=== PATIENT | male | born 1965 | race Caucasian/White ===

== ENCOUNTER 2016-06-23 16:34 | Emergency (ER) | payer BC ==
[2016-06-23 16:57] VITALS: BP 156/86
[2016-06-23] MEDS ORDERED: NS 0.9% 1000 ML* 1,000 ML IV ONE (18:07)
--- NOTE | 2016-06-23 18:58 | RAD ---
Indication: Abdominal pain since yesterday. History of C. Difficile colitis. Comparison: September 29, 2015 CT. Technique: Supine and upright views of the abdomen. Report: Negative for free air beneath the LEFT hemidiaphragm or partially visualized RIGHT hemidiaphragm. Moderately large volume of stool present throughout the colon. No dilated bowel loops to indicate bowel obstruction. No suspicious calcifications or mass effect. Thoracic lumbar spinal fixation rods noted. Fracture at the caudal margin of the RIGHT spinal fixation rodrigue is chronic. Unremarkable soft tissue contours. IMPRESSION: Large volume of stool present throughout the colon. No evidence for bowel obstruction.
--- NOTE | 2016-06-23 19:45 | ED ---
Gertrudis John Rebecca, scribed for Nima Cook MD on 06/23/16 at 1815 . Abdominal Pain/Male - HPI Summary HPI Summary: Pt is a 51 y/o M who presents to ED c/o abd pain. Pain is acut deon chronic, present for multiple months, worsening 2 days ago and has been constant since onset. Pain is in the RLQ without radiation and is characterized as pulling/ tearing and currently ranked 5/10. Pt states that it feels as though "there's a bungee cord in there". Sx aggravated by standing, alleviated by nothing. Additionally c/o constipation. Denies changes in appetite. Dx of inguinal hernia in January. Has not seen a surgeon concerning hernia. Referred from PCP where they attempted to reduce it to r/o incarceration of hernia. - History of Current Complaint Chief Complaint: EDAbdPain Stated Complaint: LOWER ABD PAIN Time Seen by Provider: 06/23/16 18:02 Hx Obtained From: Patient Onset/Duration: Gradual Onset, Lasting Weeks - Multiple months, Still Present, Worse Since - 2 days ago Timing: Constant Severity Initially: Mild Severity Currently: Moderate Pain Intensity: 5 Pain Scale Used: 0-10 Numeric Location: Discrete At: RLQ Radiates: No Character: Tearing Aggravating Factor(s): Other: - Standing Alleviating Factor(s): Nothing Associated Signs And Symptoms: Positive: Constipation. Negative: Decreased Appetite - Allergies/Home Medications Allergies/Adverse Reactions: Allergies Allergy/AdvReac Type Severity Reaction Status Date / Time No Known Allergies Allergy Verified 09/29/15 17:37 PMH/Surg Hx/FS Hx/Imm Hx Endocrine/Hematology History: Denies: Hx Diabetes Cardiovascular History: Denies: Hx Congestive Heart Failure, Hx Hypertension GI History: Reports: Other GI Disorders - cdiff History: Denies: Hx Dialysis, Hx Renal Disease Musculoskeletal History: Reports: Other Musculoskeletal History - BACK SURGERY FOR KYPHOSIS- STATES HAS 2 METAL RODS IN BACK Sensory History: Reports: Hx Contacts or Glasses Denies: Hx Hearing Aid Opthamlomology History: Reports: Hx Contacts or Glasses - Surgical History Surgery Procedure, Year, and Place: Back surgery for kyphosis 1982. Nasal surgery Hx Anesthesia Reactions: No - Immunization History Date of Tetanus Vaccine: pt states unsure Date of Influenza Vaccine: none Infectious Disease History: Yes Infectious Disease History: Reports: Hx Clostridium Difficile - +, Hx Shingles Denies: Traveled Outside the [place] in Last 30 Days - Family History Known Family History: Positive: Cardiac Disease - Social History Alcohol Use: Occasionally Alcohol Amount: 12 PACK PER WEEK Hx Substance Use: No Substance Use Type: Reports: None Hx Tobacco Use: Yes Smoking Status (MU): Former Smoker Amount Used/How Often: 1 1/2-2 PPD X 28 YEARS Have You Smoked in the Last Year: No Review of Systems Positive: Abdominal Pain - RLQ, Other - Denies changes in appetite Positive: other - Constipation All Other Systems Reviewed And Are Negative: Yes Physical Exam - Summary Physical Exam Summary: VITAL SIGNS: Reviewed. GENERAL: Patient is a well developed and nourished male who is lying comfortable in the stretcher. Patient is not in any acute respiratory distress. HEAD AND FACE: Normocephalic and atraumatic. EYES: PERRLA, EOMI x 2, No injected conjunctiva. EARS: Hearing grossly intact. Ear canals and tympanic membranes are WNL. MOUTH: Oropharynx within normal limits. NECK: Supple, trachea is midline, no adenopathy, no JVD. CHEST: Symmetric, no tenderness at palpation LUNGS: Clear to auscultation bilaterally. No wheezing or crackles. CVS: RRR,, S1 and S2 present, no murmurs or gallops appreciated. ABDOMEN: Soft, non-tender. No signs of distention. Positive bowel sounds. No rebound no guarding, and no masses palpated. No abdominal bruit or pulsations. Positive right inguinal hernia which was reducible. : Circuited penis with both testicles dended and no masses or tenderness found. Normal cremasteric reflex. EXTREMITIES: FROM in all major joints, no edema, no cyanosis or clubbing. NEURO: Alert and oriented x 3. No acute neurological deficits. Speech is normal. SKIN: Dry and warm Vital Signs On Initial Exam: Initial Vitals Temp Pulse Resp BP Pulse Ox 98.5 F 71 16 156/86 100 06/23/16 16:50 06/23/16 16:50 06/23/16 16:50 06/23/16 16:50 06/23/16 16:50 Diagnostics - Vital Signs Vital Signs Temp Pulse Resp BP Pulse Ox 06/23/16 16:50 98.5 F 71 16 156/86 100 - Laboratory Lab Statement: Any lab studies that have been ordered have been reviewed, and results considered in the medical decision making process. - Radiology Abd XR Radiology Interpretation Completed By: Radiologist - Large volume of stool present throughout the colon. No evidence for bowel obstruction. Abdominal Pain Fem Course/Dx - Course Assessment/Plan: Pt is a 51 y/o M who presents to ED as a transfer from PCP with a CC of having an incarcerated R inguinal hernia. Pt reports that he has been dealing with sx for the last couple months, however in the last couple days , that he returned to work, he has been having an increase in pain and protrusion of hernia. In the ED course, during the physical exam, pt was able to reduce the hernia himself. I re-examined pt multiple times and hernia did not protrude. The pt is asymptomatic and has no pain. XR of the abdomen shows large amount of stool present throughout the colon w/o evidence of obstruction. The pt is also passing gas. At this time I discussed my PE and findings with Dr. Dooley from surgery and he recommends that pt be d/c and followup tomorrow morning at his office. The pt and his are agreeable with plan therefore he will be d/c to home with followup with PCP and Dr. Dooley. Patient was also given a prescription for Miralax for his constipation. Patient still passing gas in the ED. I discussed all the findings and test results with the patient and patient. Patient was instructed to return to the emergency room immediately if any of the symptoms return or worsens. They understand and agree. They were explained the possibility of an early abdominal pathology which was not detected at this time despite the physical exam and testing. They understand and agree. Abdominal exam before discharge: Soft,NT. No signs of distention. BS present. No rebound no guarding, and no masses palpated. Patient is alert and oriented. Patient is hemodynamically stable. Patient is to follow up with primary care physician in the next 24 hours. Patient and patients parents agree and understands. - Diagnoses Provider Diagnoses: Reducible right inguinal hernia - Provider Notifications Discussed Care Of Patient With: Dr. Dooley, surgeon, who recommends that pt be d/ c to home and followup with him tomorrow morning. Time Discussed With Above Provider: 19:24 Discharge - Discharge Plan Condition: Stable Disposition: HOME Prescriptions: Polyethylene Glycol 3350* [Miralax*] 17 gm PO DAILY #12 packet Patient Education Materials: Inguinal Hernia (ED) Referrals: Kurt Scott MD [Primary Care Provider] - 3 Days Jaspreet Dooley MD [Medical Doctor] - 06/24/16 Additional Instructions: Follow up with Dr. Dooley, surgeon, at his office tomorrow morning. Follow up with your primary care physician within the next 3 days. Return to ED for any returning or worsening of symptoms. The documentation as recorded by the Gertrudis barrientos Rebecca accurately reflects the service I personally performed and the decisions made by , Nima Cook MD.
== END 2016-06-23 20:01 | disposition home or self-care (01) ==
LOC: ED 16:34
DX: K40.90 Unilateral inguinal hernia, without obstruction or gangrene, not specified as recurrent (principal); Z87.891 Personal history of nicotine dependence
CPT/HCPCS: 74020; 99282

== ENCOUNTER → 2016-06-30 | Day surgery (SDC) | payer BC ==
[~2016-06-30] MED LIST: Atracurium* 10 MG/ML 10 ML VIAL ONE; Buffered Lidocaine 1% SYR 3ML* 3 ML/SYR SYRINGE INTRADERM ONE; Buffered Lidocaine 1% SYR 3ML* 3 ML/SYR SYRINGE ONE; Bupivacaine 0.25% EPI 200,000* 30 ML SDV ONE; DiMENhydriNATE IV* 50 MG/ML VIAL IV PUSH PRN; Lidocaine 2% MPF* 2 ML VIAL ONE; Phenylephrine IV* 40 MCG/ML 10 ML SYRINGE ONE; Propofol* 10 MG/ML 20 ML BTL IV PUSH ONE; Sodium Citrate/Citric Acid* 15 ML UDC ONE; Sodium Citrate/Citric Acid* 15 ML UDC PO ONE; ceFAZolin 2 GM PREMIX (*) 2 GM/50 ML BAG IVPB ONE; celeCOXIB CAP* 100 MG ONE; celeCOXIB CAP* 200 MG PO ONE; fentaNYL* 50 MCG/ML 2 ML VIAL (100 MCG VIAL) ONE; oxyCODONE/Acetamin 5/325 MG* TAB ONE; oxyCODONE/Acetamin 5/325 MG* TAB PO PRN
--- NOTE | 2016-06-30 11:15 | SURGPN ---
Brief Operative Note - Surgery Procedures: Procedures Pre-OP Diagnoses: Right inguinal hernia Post-op Diagnosis: same Procedure: Laparoscopic right inguinal hernia repair with mesh Surgeon: Soumya Asst: Yunior Terrellthearnel: PHYLICIA Burch EBL: minimal IVF: minimal Specimen: none Drains: none
[2016-06-30] MEDS: fentaNYL* 50 MCG/ML 2 ML VIAL (100 MCG VIAL) IV PRN ×2 (11:39→11:58)
[2016-06-30 12:15] VITALS: BP 135/78
--- NOTE | 2016-06-30 22:40 | OP ---
DATE OF OPERATION: 06/30/16 - [facility] DATE OF : 61 SURGEON: Jaspreet Dooley MD FISH CUTTER: Massiel Mojica NP ANESTHESIOLOGIST: Dr. Burch ANESTHESIA: General. PRE-OP DIAGNOSIS: Right inguinal hernia. POST-OP DIAGNOSIS: Right inguinal hernia. OPERATIVE PROCEDURE: Laparoscopic right inguinal hernia repair with mesh. ESTIMATED BLOOD LOSS: Minimal. FLUID: Crystalloids. SPECIMEN: None. COUNTS: Lap pad count, instrument count correct at the end of the procedure. DISPOSITION: The patient extubated and transferred to the PACU in a stable condition. DESCRIPTION OF PROCEDURE: The patient was identified in the preoperative area, marked, consent signed and taken back to the operating room, placed on the operating table in supine position. Preoperative antibiotics were given. Sequential devices were placed on bilateral lower extremities. General anesthesia was induced. The patient's abdomen was clipped of hair and then prepped and draped in a standard surgical fashion. Time-out was performed. An infraumbilical incision was made. This was deepened down to the anterior fascia on the right, which was incised and the rectus pillar retracted laterally and entry into the preperitoneal plane was made. Finger dissection was then used to break up any attachments to make this a bigger space and then a 12-mm trocar was inserted. This preperitoneal plane was allowed to insufflate to a pressure of 12 mmHg, and the patient tolerated the insufflation well. Blunt dissection was then carried out with the camera. We appreciated that we were in the appropriate plane and then two 5 mm trocars were placed in the lower midline. We exposed Papo's ligament on both left and right. There was no direct hernia. The epigastric vessels were identified and maintained anteriorly. We opened up into Bogros' space, fraying up this area, and the hernia sac was then clearly identified. This was gently dissected bluntly from the spermatic structures structures until it was completely reduced. Hemostasis was excellent. Next, a large Bard 3D mesh for the right side was opened up. This was placed into the abdomen and was tacked over Appo's ligament and also laterally. We also took a portion of the sac and loosely tacked it to the mesh itself. It covered the full myopectineal orifice. The preperitoneal plane was then allowed to collapse. Trocars removed under direct vision and the umbilical incision site was reapproximated to the fascial layer with an 0 Polysorb suture in a [id number] fashion and then all 3 skin incision were reapproximated with 4-0 Monocryl subcuticular sutures. Steri- Strips and sterile dressing were applied. The patient tolerated the procedure well and was transferred to the PACU in a stable condition. CC: Kurt Scott MD* [id number]/[facility] #: [id number] GUALBERTO
== END | disposition home or self-care (01) ==
LOC: OR 07:58
PROVIDERS: ATTEND Surgery
DX: K40.90 Unilateral inguinal hernia, without obstruction or gangrene, not specified as recurrent (principal); Z87.891 Personal history of nicotine dependence; I10 Essential (primary) hypertension
CPT/HCPCS: A9270-GY; J0690; J2704; J3010

== ENCOUNTER → 2017-02-21 10:49 | Emergency (ER) | payer BC ==
[~2017-02-21 10:49] MED LIST changes: +Aspirin Low Dose CHEW TAB* 81 MG ONE; +Aspirin Low Dose CHEW TAB* 81 MG PO ONE; -Atracurium* 10 MG/ML 10 ML VIAL ONE; -Buffered Lidocaine 1% SYR 3ML* 3 ML/SYR SYRINGE INTRADERM ONE; -Buffered Lidocaine 1% SYR 3ML* 3 ML/SYR SYRINGE ONE; -Bupivacaine 0.25% EPI 200,000* 30 ML SDV ONE; -DiMENhydriNATE IV* 50 MG/ML VIAL IV PUSH PRN; +Iohexol 350* (CONTRAST) 500 ML MDV IV ONE; -Lidocaine 2% MPF* 2 ML VIAL ONE; -Phenylephrine IV* 40 MCG/ML 10 ML SYRINGE ONE; -Propofol* 10 MG/ML 20 ML BTL IV PUSH ONE; -Sodium Citrate/Citric Acid* 15 ML UDC ONE; -Sodium Citrate/Citric Acid* 15 ML UDC PO ONE; -ceFAZolin 2 GM PREMIX (*) 2 GM/50 ML BAG IVPB ONE; -celeCOXIB CAP* 100 MG ONE; -celeCOXIB CAP* 200 MG PO ONE; -fentaNYL* 50 MCG/ML 2 ML VIAL (100 MCG VIAL) ONE; -oxyCODONE/Acetamin 5/325 MG* TAB ONE; -oxyCODONE/Acetamin 5/325 MG* TAB PO PRN
[2017-02-21 12:03] LABS: Hematocrit 45 % (42-52); Hemoglobin 15.2 g/dl (14.0-18.0); Mean Corpuscular HGB Conc 34 g/dl (31-36); Mean Corpuscular Hemoglobin 30 pg (27-31); Mean Corpuscular Volume 90 fL (80-94); Mean Platelet Volume 8 um3 (7.4-10.4); Red Blood Count 5.04 10^6/ul (4.0-5.4); Red Cell Distribution Width 14 % (10.5-15); White Blood Count 5.7 10^3/ul (3.5-10.8)
--- NOTE | 2017-02-21 12:08 | RAD ---
INDICATION: Chest pain, back pain, RIGHT arm pain. History of hypertension and tobacco use. COMPARISON: No relevant prior exams available on the [facility] PACS for comparison. TECHNIQUE: Dual energy PA and routine lateral views of the chest were obtained. REPORT: Minimal prominence of the lower lung zone interstitial markings. No consolidation concerning for pneumonia, focal pulmonary lesion, pleural effusion, pneumothorax. The heart, pulmonary vasculature, and mediastinal contours are unremarkable. 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 Bilateral posterior element spinal fixation rods. IMPRESSION: Minimal bilateral lower lung zone subsegmental atelectasis.
[2017-02-21 12:18] LABS: Albumin 3.9 g/dL (3.2-5.2); Calcium 9.3 mg/dL (8.6-10.3); EGFR African American 140.1 (>60); EGFR Non-African American 108.9 (>60); Globulin 3.2 g/dL (2-4); Potassium 4.1 mmol/L (3.5-5.0); Total Bilirubin 0.5 mg/dL (0.2-1.0); Total Protein 7.1 g/dL (6.4-8.9)
[2017-02-21 12:57] VITALS: BP 140/82
--- NOTE | 2017-02-21 13:29 | RAD ---
INDICATION: Back pain. Assess for aortic dissection. COMPARISON: September 29, [address] and February 21, 2017 chest radiograph. TECHNIQUE: Multidetector CT images were obtained from the lung apices to the ischial tuberosities with 100 mL Omnipaque 350 IV contrast. No oral contrast administered limiting assessment of the alimentary tract. Multiplanar reformation including maximum intensity projection and 3-D arterial volume rendering of the aorta. CHEST REPORT: Mild LEFT basilar subsegmental atelectasis or pleural-parenchymal scarring. Negative for pleural effusion or pneumothorax. 0.7 cm short axis normal size limits RIGHT paratracheal lymph node. Similar normal size subcarinal and hilar lymph nodes. Negative for lymphadenopathy. Negative for cardiomegaly or pericardial effusion. Coronary artery calcifications. Well opacified aorta is normal in diameter and remarkable for only mild atherosclerotic plaque. Negative for dissection of the thoracic aorta. The pulmonary arteries are well-opacified without filling defects to suggest pulmonary embolism. Bilateral thoracic spine fixation rods with resulting artifact. 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 No suspicious focal osseous lesions. CHEST IMPRESSION: 1. No evidence for aneurysm or dissection of the thoracic aorta. 2. Coronary artery calcifications. 3.Bilateral thoracic spine fixation rods with resulting artifact. 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 No fracture or suspicious focal osseous lesions. ABDOMEN PELVIS REPORT: Arterial phase only series limits assessment of the abdominal viscera. No suspicious finding of the liver, gallbladder, pancreas, spleen. Negative for CT abnormality of the upper GI, small bowel, or retrocecal appendix. Severe colonic diverticulosis most marked at the sigmoid colon without findings of acute diverticulitis. Negative for ascites or free air. Small fat-containing indirect RIGHT inguinal hernia without inflammatory change. 1.8 cm diameter RIGHT adrenal nodule is unchanged compared with the September 29, 2015 exam favoring benign etiology although the nodule is nonspecific based on density measurement with presence of IV contrast limiting characterization. Unremarkable LEFT adrenal gland. Symmetric cortical enhancement of the kidneys. No focal renal lesions or hydronephrosis. Unremarkable ureters and partially distended urinary bladder. Symmetric seminal vesicles. Negative for lymphadenopathy. Atherosclerotic plaque of the abdominal aorta and iliac arteries without aneurysm, dissection, or hemodynamic significant stenosis. No evidence for hemodynamic significant renal artery, celiac axis, or superior mesenteric artery stenosis. Normal opacification of the inferior mesenteric artery. Normal variant LEFT side inferior vena cava demonstrates normal physiologic distention. RIGHT iliac bone bone harvest defect noted. No suspicious focal osseous lesions evident. Negative for fracture. Mild multilevel lumbar sacral spine degenerative spondylosis and facet joint osteoarthritis. ABDOMEN PELVIS IMPRESSION: 1. Peripheral vascular disease without aneurysm or dissection of the abdominal aorta or iliac arteries. 2. 1.8 cm diameter RIGHT adrenal nodule is unchanged compared with the September 29, 2015 exam favoring benign etiology although the nodule is nonspecific based on density measurement with presence of IV contrast limiting characterization. Consider nonemergent outpatient follow-up noncontrast CT of the abdomen to further characterize the RIGHT adrenal lesion. 3. Severe colonic diverticulosis without findings of diverticulitis. 4. Negative for obstructive uropathy.
--- NOTE | 2017-02-21 20:17 | ED ---
Carly John Emily, scribed for Jeronimo Ferguson MD on 02/21/17 at 1132 . Complex/Multi-Sys Presentation - HPI Summary HPI Summary: This patient is a 51 year old M BIBA to [facility] accompanied by children with a chief complaint of back pain since 0400 yesterday. The back pain began in the upper back and radiated to shoulders (mostly right), low back, and right arm ( pain and pressure). The pain is intermittent and worsening today at 0930. Symptoms aggravated by nothing. Symptoms alleviated by Ibuprofen. Patient reports heartburn, palpitations, near syncope, and headache (pressured). Patient denies CP. - History Of Current Complaint Time Seen by Provider: 02/21/17 11:15 Hx Obtained From: Patient, Family/Toll Operator Onset/Duration: Sudden Onset, Lasting Days, Still Present Timing: Intermittent, Lasting: - Days. Severity Currently: Moderate Severity Initially: Moderate Aggravating Factor(s): nothing Alleviating Factor(s): nothing Associated Signs And Symptoms: Positive: Headache, Palpitations, Other - Near syncope. Heartburn. - Allergies/Home Medications Allergies/Adverse Reactions: Allergies Allergy/AdvReac Type Severity Reaction Status Date / Time No Known Allergies Allergy Verified 06/30/16 08:12 PMH/Surg Hx/FS Hx/Imm Hx Endocrine/Hematology History: Denies: Hx Diabetes Cardiovascular History: Reports: Hx Hypertension - ON Rx, DOESN'T REMEMBER NAME Denies: Hx Congestive Heart Failure GI History: Reports: Other GI Disorders - cdiff History: Denies: Hx Dialysis, Hx Renal Disease Musculoskeletal History: Reports: Other Musculoskeletal History - BACK SURGERY FOR KYPHOSIS- STATES HAS 2 METAL RODS IN BACK Sensory History: Reports: Hx Contacts or Glasses - GLASSES Denies: Hx Hearing Aid Opthamlomology History: Reports: Hx Contacts or Glasses - GLASSES - Surgical History Surgery Procedure, Year, and Place: 1981 Back surgery for kyphosis [facility]. 05/2015 Nasal surgery [facility] [place] Hx Anesthesia Reactions: No - Immunization History Date of Tetanus Vaccine: pt states unsure Date of Influenza Vaccine: none Infectious Disease History: Reports: Hx Clostridium Difficile - +, Hx Shingles Denies: Traveled Outside the [place] in Last 30 Days - Family History Known Family History: Positive: Cardiac Disease - Social History Alcohol Use: Occasionally Alcohol Amount: 12 PACK PER WEEK Hx Substance Use: No Substance Use Type: Reports: None Hx Tobacco Use: Yes Smoking Status (MU): Former Smoker Type: Cigarettes Amount Used/How Often: 1 1/2--2 PPD X Length of Time of Smoking/Using Tobacco: 23YRS Have You Smoked in the Last Year: No Review of Systems Positive: Palpitations. Negative: Chest Pain Positive: Other - Heartburn. Positive: Other - Back pain Positive: Headache, Syncope - Near. All Other Systems Reviewed And Are Negative: Yes Physical Exam Triage Information Reviewed: Yes Vital Signs On Initial Exam: Initial Vitals Pulse Ox 96 02/21/17 11:38 Vital Signs Reviewed: Yes Appearance: Positive: Well-Appearing, No Pain Distress Skin: Positive: Warm, Skin Color Reflects Adequate Perfusion, Dry Head/Face: Positive: Normal Head/Face Inspection Eyes: Positive: Normal ENT: Positive: Normal ENT inspection Neck: Positive: Supple, Nontender Respiratory/Lung Sounds: Positive: Clear to Auscultation, Breath Sounds Present Cardiovascular: Positive: RRR Abdomen Description: Positive: Nontender, Soft Bowel Sounds: Positive: Present Musculoskeletal: Positive: Normal Neurological: Positive: Normal, Sensory/Motor Intact, Alert, Oriented to Person Place, Time, CN Intact II-III Psychiatric: Positive: Affect/Mood Appropriate Diagnostics - Vital Signs Vital Signs Temp Pulse Resp BP Pulse Ox 02/21/17 15:00 79 20 95 02/21/17 14:00 74 20 96 02/21/17 13:00 83 20 95 02/21/17 12:58 77 17 97 02/21/17 12:30 140/82 02/21/17 12:00 144/84 02/21/17 11:55 142/81 02/21/17 11:44 97.8 F 90 18 143/90 02/21/17 11:38 96 02/21/17 11:36 92 15 97 02/21/17 11:30 93 19 160/103 02/21/17 11:00 91 18 143/90 02/21/17 10:58 10 02/21/17 10:57 128/86 - Laboratory Lab Results: Lab Results 02/21/17 02/21/17 02/21/17 Range/Units 11:50 11:50 11:50 WBC 5.7 (3.5-10.8) 10^3/ul RBC 5.04 (4.0-5.4) 10^6/ul Hgb 15.2 (14.0-18.0) g/dl Hct 45 (42-52) % MCV 90 (80-94) fL MCH 30 (27-31) pg MCHC 34 (31-36) g/dl RDW 14 (10.5-15) % Plt Count 210 (150-450) 10^3/ul MPV 8 (7.4-10.4) um3 Neut % (Auto) 49.0 (38-83) % Lymph % (Auto) 39.8 (25-47) % [place] % (Auto) 8.3 (1-9) % Eos % (Auto) 2.2 (0-6) % Baso % (Auto) 0.7 (0-2) % Absolute Neuts (auto) 2.8 (1.5-7.7) 10^3/ul Absolute Lymphs (auto) 2.3 (1.0-4.8) 10^3/ul Absolute Monos (auto) 0.5 (0-0.8) 10^3/ul Absolute Eos (auto) 0.1 (0-0.6) 10^3/ul Absolute Basos (auto) 0 (0-0.2) 10^3/ul Absolute Nucleated RBC 0.01 10^3/ul Nucleated RBC % 0.1 D-Dimer, Quantitative < 200 (Less Than 230) ng/mL Sodium 132 L (133-145) mmol/L Potassium 4.1 (3.5-5.0) mmol/L Chloride 104 (101-111) mmol/L Carbon Dioxide 23 (22-32) mmol/L Anion Gap 5 (2-11) mmol/L BUN 15 (6-24) mg/dL Creatinine 0.75 (0.67-1.17) mg/dL Est GFR ( Amer) 140.1 (>60) Est GFR (Non-Af Amer) 108.9 (>60) BUN/Creatinine Ratio 20.0 (8-20) Glucose 91 (70-100) mg/dL Lactic Acid (0.5-2.0) mmol/L Calcium 9.3 (8.6-10.3) mg/dL Total Bilirubin 0.50 (0.2-1.0) mg/dL AST 23 (13-39) U/L ALT 24 (7-52) U/L Alkaline Phosphatase 55 (34-104) U/L Troponin I 0.00 (<0.04) ng/mL Total Protein 7.1 (6.4-8.9) g/dL Albumin 3.9 (3.2-5.2) g/dL Globulin 3.2 (2-4) g/dL Albumin/Globulin Ratio 1.2 (1-3) 02/21/17 02/21/17 Range/Units 11:50 14:21 WBC (3.5-10.8) 10^3/ul RBC (4.0-5.4) 10^6/ul Hgb (14.0-18.0) g/dl Hct (42-52) % MCV (80-94) fL MCH (27-31) pg MCHC (31-36) g/dl RDW (10.5-15) % Plt Count (150-450) 10^3/ul MPV (7.4-10.4) um3 Neut % (Auto) (38-83) % Lymph % (Auto) (25-47) % [place] % (Auto) (1-9) % Eos % (Auto) (0-6) % Baso % (Auto) (0-2) % Absolute Neuts (auto) (1.5-7.7) 10^3/ul Absolute Lymphs (auto) (1.0-4.8) 10^3/ul Absolute Monos (auto) (0-0.8) 10^3/ul Absolute Eos (auto) (0-0.6) 10^3/ul Absolute Basos (auto) (0-0.2) 10^3/ul Absolute Nucleated RBC 10^3/ul Nucleated RBC % D-Dimer, Quantitative (Less Than 230) ng/mL Sodium (133-145) mmol/L Potassium (3.5-5.0) mmol/L Chloride (101-111) mmol/L Carbon Dioxide (22-32) mmol/L Anion Gap (2-11) mmol/L BUN (6-24) mg/dL Creatinine (0.67-1.17) mg/dL Est GFR ( Amer) (>60) Est GFR (Non-Af Amer) (>60) BUN/Creatinine Ratio (8-20) Glucose (70-100) mg/dL Lactic Acid 1.0 (0.5-2.0) mmol/L Calcium (8.6-10.3) mg/dL Total Bilirubin (0.2-1.0) mg/dL AST (13-39) U/L ALT (7-52) U/L Alkaline Phosphatase (34-104) U/L Troponin I 0.00 (<0.04) ng/mL Total Protein (6.4-8.9) g/dL Albumin (3.2-5.2) g/dL Globulin (2-4) g/dL Albumin/Globulin Ratio (1-3) Result Diagrams: 02/21/17 11:50 02/21/17 11:50 Lab Statement: Any lab studies that have been ordered have been reviewed, and results considered in the medical decision making process. - Radiology CXR Radiology Interpretation Completed By: Radiologist - Minimal bilateral lower lung zone subsegmental atelectasis. ED physician has reviewed this radiology report and agrees. - CT CTA Chest/Abdomen/Pelvis CT Interpretation Completed By: Radiologist - CHEST IMPRESSION: 1. No evidence for aneurysm or dissection of the thoracic aorta. 2. Coronary artery calcifications. 3.Bilateral thoracic spine fixation rods with resulting artifact. 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 No fracture or suspicious focal osseous lesions. ABDOMEN PELVIS IMPRESSION: 1. Peripheral vascular disease without aneurysm or dissection of the abdominal aorta or iliac arteries. 2. 1.8 cm diameter RIGHT adrenal nodule is unchanged compared with the September 29, 2015 exam favoring benign etiology although the nodule is nonspecific based on density measurement with presence of IV contrast limiting characterization. Consider nonemergent outpatient follow-up noncontrast CT of the abdomen to further characterize the RIGHT adrenal lesion. 3. Severe colonic diverticulosis without findings of diverticulitis. 4. Negative for obstructive uropathy. ED physician has reviewed this radiology report and agrees. - EKG 1058 Cardiac Rate: NL - 89 BPM. EKG Rhythm: Sinus Rhythm EKG Interpretation: LVH. EKG Comparison: No Significant Change - Since 01/06/14. Complex Multi-Symp Course/Dx Course Of Treatment: Mr. Gonzalez presented with a variety of complaints the most consostent of which was back pain. I was concerned for a possible dissection and a CTA ruled that out. The rest of his W/U including a delayed troponin was also negative and I will recommend close F/U. His EDACS score was 17. - Diagnoses Provider Diagnoses: Back pain Discharge - Discharge Plan Condition: Stable Disposition: HOME Patient Education Materials: Chest Pain (ED) Referrals: Kurt Scott MD [Primary Care Provider] - 3 Days The documentation as recorded by the Carly barrientos Emily accurately reflects the service I personally performed and the decisions made by me, Jeronimo Ferguson MD.
== END | disposition home or self-care (01) ==
LOC: ED 10:49
DX: R00.2 Palpitations (principal); R12 Heartburn; Z87.891 Personal history of nicotine dependence; M54.9 Dorsalgia, unspecified; R51 Headache
CPT/HCPCS: 36415; 71020; 71275; 74174; 80053; 83605; 84484; 85025; 85379; 93005; 99282; A9270-GY; Q9967

== ENCOUNTER 2022-06-29 10:48 | Inpatient (IN) ==
[2022-06-29 11:09] LABS: ABS Basophils 0.1 10^3/ul (0-0.2); ABS Eosinophils 0.2 10^3/ul (0-0.6); ABS Lymphocytes 2.1 10^3/ul (1.0-4.8); ABS Monocytes 0.5 10^3/ul (0-0.8); Eosinophil % 3.2 %; Hematocrit 46 % (42-52); Hemoglobin 15.6 g/dL (14.0-18.0); Lymphocyte % 36.2 %; Mean Corpuscular HGB Conc 34 g/dL (31-36); Mean Corpuscular Hemoglobin 31 pg (27-31); Mean Corpuscular Volume 91 fL (80-94); Mean Platelet Volume 7.8 fL (7.4-10.4); Nucleated Red Blood Cells % 0.2; Platelet Count 204 10^3/uL (150-450); Red Blood Count 5.06 10^6 /uL (4.18-5.48); Red Cell Distribution Width 14 % (10-15); White Blood Count 5.8 10^3/uL (3.5-10.8)
[2022-06-29 11:14] LABS: INR 1.02 (0.88-1.18)
[2022-06-29 12:14] LABS: Albumin 4.3 g/dL (3.2-5.2); Albumin/Globulin Ratio 1.6 (1-3); Calcium 8.9 mg/dL (8.6-10.3); Globulin 2.7 g/dL (2-4); Total Bilirubin 0.7 mg/dL (0.2-1.0); eGFR CKD-EPI 104.4 (>60)
[2022-06-29 12:48] LABS: High Sensitivity Troponin 1 Hr 11 pg/mL (<20)
[2022-06-29] MEDS ORDERED: Iohexol 350 (CONTRAST) 500 ML MDV IV ONE (13:49)
[2022-06-29] MEDS ORDERED: hydrALAZINE 20 mg/ml 1 ML Vial IV IV SLOW PU ONE (13:53)
[2022-06-29] MEDS ORDERED: Labetalol IV 5 MG/ML 20 ml VIAL IV PUSH PRN ×2 (15:01→15:08)
[2022-06-29 16:15] LABS: HDL Cholesterol 57.7 mg/dL
[2022-06-29] MEDS: Enoxaparin 40 MG/0.4 ML SYR SUBCUT SCH (17:18)
[2022-06-30 07:42] LABS: ABS Eosinophils 0.2 10^3/ul (0-0.6); ABS Lymphocytes 1.8 10^3/ul (1.0-4.8); ABS Monocytes 0.4 10^3/ul (0-0.8); ABS Neutrophils 1.6 10^3/ul (1.5-7.7); Eosinophil % 3.9 %; Hematocrit 46 % (42-52); Hemoglobin 15.5 g/dL (14.0-18.0); Lymphocyte % 45.2 %; Mean Corpuscular HGB Conc 34 g/dL (31-36); Mean Corpuscular Hemoglobin 31 pg (27-31); Mean Corpuscular Volume 91 fL (80-94); Mean Platelet Volume 8.1 fL (7.4-10.4); Nucleated Red Blood Cells % 0.1; Platelet Count 203 10^3/uL (150-450); Red Cell Distribution Width 14 % (10-15)
[2022-06-30 08:04] LABS: Calcium 8.9 mg/dL (8.6-10.3); Potassium 4.1 mmol/L (3.5-5.0); eGFR CKD-EPI 106.1 (>60)
[2022-06-30] MEDS: Enoxaparin 40 MG/0.4 ML SYR SUBCUT SCH (16:55)
[2022-07-01 06:14] LABS: ABS Eosinophils 0.2 10^3/ul (0-0.6); ABS Monocytes 0.5 10^3/ul (0-0.8); ABS Neutrophils 2.1 10^3/ul (1.5-7.7); Eosinophil % 3.5 %; Hematocrit 45 % (42-52); Lymphocyte % 41.5 %; Mean Corpuscular HGB Conc 33 g/dL (31-36); Mean Corpuscular Hemoglobin 31 pg (27-31); Mean Corpuscular Volume 93 fL (80-94); Mean Platelet Volume 8.1 fL (7.4-10.4); Nucleated Red Blood Cells % 0.2; Platelet Count 189 10^3/uL (150-450); Red Cell Distribution Width 14 % (10-15); White Blood Count 4.9 10^3/uL (3.5-10.8)
[2022-07-01 06:35] LABS: Calcium 8.7 mg/dL (8.6-10.3); Potassium 4.5 mmol/L (3.5-5.0); eGFR CKD-EPI 102.7 (>60)
[2022-07-01] MEDS ORDERED: Regadenoson 0.4 MG/5 ML SYRINGE ONE (10:13)
[2022-07-01] MEDS: Enoxaparin 40 MG/0.4 ML SYR SUBCUT SCH (16:27)
[2022-07-02 06:49] LABS: ABS Eosinophils 0.2 10^3/ul (0-0.6); ABS Lymphocytes 1.8 10^3/ul (1.0-4.8); ABS Monocytes 0.6 10^3/ul (0-0.8); Eosinophil % 3.3 %; Hematocrit 47 % (42-52); Hemoglobin 15.8 g/dL (14.0-18.0); Lymphocyte % 32.2 %; Mean Corpuscular HGB Conc 34 g/dL (31-36); Mean Corpuscular Hemoglobin 31 pg (27-31); Mean Corpuscular Volume 93 fL (80-94); Mean Platelet Volume 8.1 fL (7.4-10.4); Nucleated Red Blood Cells % 0.1; Platelet Count 196 10^3/uL (150-450); Red Blood Count 5.04 10^6 /uL (4.18-5.48); Red Cell Distribution Width 14 % (10-15); White Blood Count 5.6 10^3/uL (3.5-10.8)
[2022-07-02 07:12] LABS: Calcium 8.9 mg/dL (8.6-10.3); Potassium 4.3 mmol/L (3.5-5.0); eGFR CKD-EPI 102.3 (>60)
[2022-07-02 08:21] VITALS: BP 155/91
== END 2022-07-02 15:40 | disposition home or self-care (01) | DRG 203 ==
LOC: ED 10:48 → SUATTDRO 13:36 → EDHOLD 13:36 → MEDTELE 16:54
PROVIDERS: ADMIT Internal Medicine; ATTEND Internal Medicine

== ENCOUNTER 2023-08-22 08:16 | Inpatient (IN) ==
[2023-08-22 08:58] LABS: ABS Eosinophils 0.2 10^3/uL (0.0-0.5); ABS Lymphocytes 2.2 10^3/uL (1.0-4.8); ABS Monocytes 0.6 10^3/uL (0.0-1.1); ABS Neutrophils 3.2 10^3/uL (1.5-7.6); ABS Nucleated RBC 0.01 10^3/ul; Eosinophil % 2.5 %; Hematocrit 39.7 % (38-53); Hemoglobin 13.4 g/dL (13.2-16.3); Mean Corpuscular Hemoglobin 30.4 pg (27-33); Mean Corpuscular Hgb Conc 33.7 g/dL (31-36); Mean Corpuscular Volume 90.4 fL (80-97); Mean Platelet Volume 8.6 fL (7.5-11.2); Nucleated Red Blood Cells % 0.2 %/100WBC (0.0-0.8); Platelet Count 208 10^3/uL (150-450); Red Cell Distribution Width 13.5 % (12-17); White Blood Count 6.2 10^3/uL (3.6-10.2)
[2023-08-22 09:03] LABS: Urine Appearance Clear; Urine Bilirubin Negative (Negative); Urine Blood Negative (Negative); Urine Color Light-Yellow; Urine Glucose Negative (Negative); Urine Ketones Negative (Negative); Urine Nitrite Negative (Negative); Urine Protein Negative (Negative); Urine Specific Gravity 1.006 (1.002-1.030); Urine Urobilinogen Negative (Negative); Urine pH 6.5 (5.0-8.0)
[2023-08-22 09:10] LABS: INR 1.1 (0.83-1.13)
[2023-08-22 09:20] LABS: High Sens Troponin Baseline 7 pg/mL (<20)
[2023-08-22 09:57] LABS: ALT 29 U/L (7-52); Albumin 4.1 g/dL (3.2-5.2); Albumin/Globulin Ratio 1.3 (1-3); Alkaline Phosphatase 73 U/L (35-149); Anion Gap 11 mmol/L (2-16); Blood Urea Nitrogen 14 mg/dL (6-24); C Reactive Protein 2.53 mg/L (<8.01); CO2 Carbon Dioxide 25 mmol/L (22-32); Calcium 8.9 mg/dL (8.6-10.3); Chloride 104 mmol/L (101-111); Creatine Kinase 74 U/L (10-223); Creatinine, Serum 0.71 mg/dL (0.67-1.17); Globulin 3.1 g/dL (2-4); Glucose 98 mg/dL (70-100); Lipase 27 U/L (11.0-82.0); Sodium 140 mmol/L (135-145); Total Bilirubin 0.7 mg/dL (0.2-1.0); Total Protein 7.2 g/dL (6.4-8.9)
[2023-08-22] MEDS: Iohexol 350 (CONTRAST) 500 ML MDV IV ONE (11:14)
[2023-08-22 11:19] LABS: Potassium Redraw 4.6 mmol/L (3.5-5.0)
[2023-08-22] MEDS ORDERED: Morphine 4 MG/ML VIAL (1 ml) ONE (13:13)
[2023-08-22] MEDS: Morphine 4 MG/ML VIAL (1 ml) IV ONE (13:18)
[2023-08-22] MEDS: Lactated Ringers 1000 ml BAG 1,000 ML IV SCH (18:45)
[2023-08-22] MEDS: Morphine 2 MG/ML SYRINGE IV PRN (20:35)
[2023-08-23] MEDS: Ondansetron 4 mg VIAL 2 MG/ML 2 ml VIAL IV PRN (00:39)
[2023-08-23 06:04] LABS: ABS Eosinophils 0.2 10^3/uL (0.0-0.5); ABS Lymphocytes 1.7 10^3/uL (1.0-4.8); ABS Monocytes 0.6 10^3/uL (0.0-1.1); ABS Neutrophils 2.9 10^3/uL (1.5-7.6); Eosinophil % 3.6 %; Hematocrit 40.8 % (38-53); Lymphocyte % 31.5 %; Mean Corpuscular Hgb Conc 34.2 g/dL (31-36); Mean Corpuscular Volume 90.7 fL (80-97); Nucleated Red Blood Cells % 0.1 %/100WBC (0.0-0.8); Platelet Count 197 10^3/uL (150-450); Red Cell Distribution Width 13.2 % (12-17); White Blood Count 5.5 10^3/uL (3.6-10.2)
[2023-08-23 06:55] LABS: Calcium 8.4 mg/dL (8.6-10.3); Creatinine, Serum 0.87 mg/dL (0.67-1.17); Potassium 4.6 mmol/L (3.5-5.0); eGFR CKD-EPI 98.8 (>60)
[2023-08-23] MEDS: Aspirin EC 81 mg TAB.EC (enteric coated) PO SCH (07:52)
[2023-08-24 08:42] LABS: ABS Eosinophils 0.2 10^3/uL (0.0-0.5); ABS Lymphocytes 1.7 10^3/uL (1.0-4.8); ABS Monocytes 0.5 10^3/uL (0.0-1.1); ABS Neutrophils 3.2 10^3/uL (1.5-7.6); ABS Nucleated RBC 0.01 10^3/ul; Eosinophil % 3.8 %; Hematocrit 43.7 % (38-53); Hemoglobin 14.9 g/dL (13.2-16.3); Lymphocyte % 29.7 %; Mean Corpuscular Hemoglobin 30.8 pg (27-33); Mean Corpuscular Hgb Conc 34.2 g/dL (31-36); Mean Corpuscular Volume 90.2 fL (80-97); Mean Platelet Volume 8.1 fL (7.5-11.2); Nucleated Red Blood Cells % 0.2 %/100WBC (0.0-0.8); Platelet Count 203 10^3/uL (150-450); Red Blood Count 4.84 10^6/uL (4.06-5.63); Red Cell Distribution Width 13.2 % (12-17); White Blood Count 5.7 10^3/uL (3.6-10.2)
[2023-08-24 09:32] LABS: Creatinine, Serum 0.81 mg/dL (0.67-1.17); Potassium 4.7 mmol/L (3.5-5.0); eGFR CKD-EPI 100.9 (>60)
[2023-08-24 14:04] VITALS: BP 162/80
[2023-08-29 17:36] LABS: Urine Collection Duration 24 h
[2023-08-31 20:54] LABS: Urine Collection Duration 24 h; Urine Total Metanephrines 598 mcg/24 h; Urine Volume 3600 mL
== END 2023-08-24 17:04 | disposition home or self-care (01) | DRG 197 ==
LOC: ED 08:16 → EDHOLD 14:26 → SUATTDRO 14:26 → MEDTELE 19:56
PROVIDERS: ADMIT Student in an Organized Health Care Education/Training Program; ATTEND Internal Medicine